=== PATIENT | male | born 1980 | race Caucasian/White ===

== ENCOUNTER 2016-10-09 05:56 | Inpatient (IN) | payer MEDICAID, OTHER ==
[~2016-10-09] VITALS: Ht 157.5 cm; Wt 78.0 kg
[2016-10-09 05:59] VITALS: Ht 157.5 cm; Wt 78.0 kg
[2016-10-09] MEDS ORDERED: SOD CHLORIDE 0.9% 1,000 ML IV STA (06:20)
--- NOTE | 2016-10-09 06:29 | ERD ---
ER Documentation Chief Complaint Date/Time DATE: 10/09/16 TIME: 06:26 Chief Complaint rectal pain with bleeding(bright red with clots); on and off for 3 years HPI 36-year-old male who presents the emergency room with rectal bleeding. The patient has 3 year history of intermittent rectal bleeding, worse over the past year. He states over the last year he has daily rectal bleeding usually with wiping but occasionally with bowel movements. Today however he describes a heavier than normal bleed with passage of some clots. He does have some rectal pain. He denies any fevers or chills. The patient states a colonoscopy and endoscopy within the past year that has been unrevealing, no follow-up since then. He denies any other gum bleeding or bruising, he has had a transfusion for anemia in the past. ROS All systems reviewed and are negative except as per history of present illness. Medications Home Meds No Active Prescriptions or Reported Meds Allergies Allergies: Coded Allergies: No Known Allergy (Unverified , 10/09/16) PMhx/Soc Medical and Surgical Hx: pt denies Medical Hx, pt denies Surgical Hx Hx Alcohol Use: No Hx Substance Use: No Hx Tobacco Use: No Smoking Status: Never smoker FmHx Family History: No diabetes Physical Exam Vitals Vital Signs Date Time Temp Pulse Resp B/P Pulse Ox O2 Delivery O2 Flow Rate FiO2 10/09/16 07:22 94 16 134/70 100 Room Air 10/09/16 05:59 98.1 120 20 151/89 99 Physical Exam General: Well developed, well nourished, no acute distress Head: Normocephalic, atraumatic. Eyes: Pupils equally reactive, EOM intact ENT: Moist mucous membranes Neck: Supple, no lymphadenopathy Respiratory: Lungs clear bilaterally, no distress Cardiovascular: Slight tachycardia, no murmurs, rubs, or gallops Abdominal: Soft, non-tender, non-distended, no peritoneal signs : Rectal examination with a price changer shows evidence of a large 3 cm external hemorrhoid that does not appear to be thrombosed with dried blood and no active bleeding, internal examination with brown stool, no melena, no internal hemorrhoids palpated, no masses. MSK: No edema, no unilateral swelling, 5/5 strength Neurologic: Alert and oriented, moving all extremities, normal speech, no focal weakness, no cerebellar signs Skin: No rash, no petechia or purpura Psych: Normal mood Result Diagram: 10/09/16 0620 Results 24 hrs Laboratory Tests Test 10/09/16 06:20 White Blood Count 7.210^3/ul Red Blood Count 3.9610^6/ul Hemoglobin 6.3g/dl Hematocrit 24.3% Mean Corpuscular Volume 61.4fl Mean Corpuscular Hemoglobin 15.9pg Mean Corpuscular Hemoglobin Concent 25.9g/dl Red Cell Distribution Width 20.4% Platelet Count 53972^3/UL Mean Platelet Volume 9.6fl Prothrombin Time 14.0Sec Prothrombin Time Ratio 1.1 INR International Normalized Ratio 1.08 Activated Partial Thromboplast Time 26.4Sec Current Medications Medications (Trade) Dose Ordered Sig/Abbie Route PRN Reason Start Time Stop Time Status Last Admin Dose Admin Sodium Chloride 1,000 ml @ 1,000 mls/hr Q1H STAT IV 10/09/16 06:20 10/09/16 07:19 DC 10/09/16 06:32 Sodium Chloride (NS) 250 ml @ 0 mls/hr Q0M ONCE IV 10/09/16 07:43 10/09/16 07:45 DC Ondansetron HCl (Zofran Inj) 4 mg BRIDGE ORDER PRN IV NAUSEA AND/OR VOMITING 10/09/16 08:00 10/10/16 07:59 Acetaminophen (Tylenol Tab) 650 mg ER BRIDGE PRN PO MILD PAIN/FEVER 10/09/16 08:00 10/10/16 07:59 Procedures/MDM LAB INTERPRETATION: Anemia MEDICAL DECISION MAKING: The patient presents with rectal bleeding and has a clinical exam that is very consistent with an external hemorrhoid. No evidence of thrombosed hemorrhoid. The patient does have some discomfort to this area but no evidence of abscess. The external hemorrhoid does have stigmata of recent hemorrhage. The patient has brown stool. He has a recent colonoscopy not suggestive of lower GI hemorrhage. Recent endoscopy not suggestive of upper GI hemorrhage. The patient has had anemia and required transfusion in the past given daily bleeding a believe a CBC and coagulation profile will be reasonable. The patient will benefit from outpatient GI follow-up, general surgery follow- up for potential banding. The patient was informed that it is not normal to have daily bleeding and further investigation is warranted. ER COURSE: The patient has anemia less than 7. For this reason I believe he would benefit from a blood transfusion. Based on the patient's clinical presentation, physical exam and laboratory testing, I believe that a blood transfusion would be most appropriate. I believe the benefits outweigh the risks. I had a prolonged conversation regarding informed consent of a blood transfusion with the patient and/or family. We discussed the risks, benefits, alternatives of blood transfusion. There was verbalized understanding. A documented consent was signed and placed in the patient's chart. The patient was written for 2 units packed red blood cells and will be admitted for further transfusion. I kept the patient and/or family informed of laboratory and diagnostic imaging results throughout the emergency room course. DISPOSITION PLAN: Medical surgical admission for management of symptomatic anemia secondary to prolonged and subacute lower GI bleed Accepting care team and consultations: I discussed the current laboratory data, diagnostic imaging and emergency care provided. Admitting team: Dr. Rodríguez Admitting team indication: Insurance directed Departure Diagnosis: Primary Impression: Bleeding external hemorrhoids Additional Impression: Symptomatic anemia Condition: Stable MAGEN CARRERO MD Oct 09, 2016 06:29
[2016-10-09 07:06] LABS: ADD SCAN DIFF NO
[2016-10-09 07:11] LABS: ABNORMAL IP MESSAGE 1; HEMATOCRIT 24.3 % (42.0-52.0); MEAN CORPUSCULAR HEMOGLOBIN 15.9 pg (29.0-33.0); MEAN CORPUSCULAR HGB CONC 25.9 g/dl (32.0-37.0); MEAN CORPUSCULAR VOLUME 61.4 fl (82.0-101.0); MEAN PLATELET VOLUME 9.6 fl (7.4-10.4); PLATELET COUNT 629 10^3/UL (140-415); RED BLOOD COUNT 3.96 10^6/ul (4.70-6.10); RED CELL DISTRIBUTION WIDTH 20.4 % (11.5-14.5)
[2016-10-09 07:29] LABS: HEMOGLOBIN 6.3 g/dl (14.0-18.0)
[2016-10-09 07:39] LABS: INR 1.08; PARTIAL THROMBOPLASTIN TIME 26.4 Sec (25.0-35.0); PT RATIO 1.1
[2016-10-09] MEDS ORDERED: SOD CHLORIDE 0.9% 250 ML IV ONE (07:43)
[2016-10-09] MEDS ORDERED: ACETAMINOPHEN 325 MG TAB PO PRN (08:00)
[2016-10-09] MEDS ORDERED: ONDANSETRON 4 MG INJ IV PRN (08:00)
[2016-10-09 09:28] LABS: EOSINOPHILS # 0.1 10^3/ul (0.0-0.5); LYMPHOCYTES # 1.6 10^3/ul (0.8-2.9); MONOCYTE # 0.5 10^3/ul (0.3-0.9)
[2016-10-09 09:29] LABS: PLATELET ESTIMATE PLT APPEAR INCREASED
--- NOTE | 2016-10-09 12:42 | HP ---
Date/Time of Note Date/Time of Note DATE: 10/09/16 TIME: 12:41 Assessment/Plan VTE Prophylaxis VTE Prophylaxis Intervention: ambulation Assessment/Plan Assessment/Plan 1. Severe anemia 2/2 #2 2. Chronic Ongoing rectal bleeding 3. Regular alcohol use PLAN: TRansfuse / GI consult for possible endoscopy / Iron profile / supportive care Further evaluation and treatment will be based on clinical course Full discussion with care team done. All questions Answered Please also see orders. HPI/ROS Admit Date/Time Admit Date/Time 10/09/16 Hx of Present Illness PRESENTING COMPLAINT: rectal bleeding HISTORY OF PRESENTING COMPLAINT: 36-year-old male who presents the emergency room with rectal bleeding. The patient has 3 year history of intermittent rectal bleeding, worse over the past year. He states over the last year he has daily rectal bleeding usually with wiping but occasionally with bowel movements. Today however he describes a heavier than normal bleed with passage of some clots. He does have some rectal pain. He denies any fevers or chills. The patient states a colonoscopy and endoscopy within the past year that has been unrevealing, no follow-up since then. He denies any other gum bleeding or bruising, he has had a transfusion for anemia in the past. He's being admitted for further workup. PMH/Family/Social Past Medical History * rectal bleeding Past Surgical History Past Surgical Hx: no surgical history Family History Significant Family History: no pertinent family hx Social History Alcohol Use: heavy (somwhat) Smoking Status: Never smoker Exam/Review of Systems Vital Signs Vitals VS - Last 72 Hours, by Label Date Time Temp Pulse Resp B/P Pulse Ox O2 Delivery O2 Flow Rate FiO2 10/09/16 07:22 94 16 134/70 100 Room Air 10/09/16 05:59 98.1 120 20 151/89 99 Vital Signs Date Time Temp Pulse Resp B/P Pulse Ox O2 Delivery O2 Flow Rate FiO2 10/09/16 07:22 94 16 134/70 100 Room Air 10/09/16 05:59 98.1 Exam Exam GENERAL: Patient is alert, oriented x 3, in no apparent distress; does not appear acutely or chronically ill. Patient is able to sit up unassisted.Patient makes good eye contact, is conversant, interactive, coherent. Patient appears calm and comfortable and is able to follow commands. HEENT: Oropharynx is clear. There is no carotid bruit, no masses. Patient's pupils are equal, round and reactive to light bilaterally. Extraocular motions are intact. There is no scleral icterus. There is no facial asymmetry. NECK: Supple. LUNGS: Clear to auscultation bilaterally with good air entry. No Wheezes or crackles. HEART: S1, S2. No murmur, gallops or rubs. Regular rate and rhythm. ABDOMEN: Soft, nontender. Normoactive bowel sounds. There are no stigmata of chronic liver disease. BACK: no costovertebral angle tenderness. GENITOURINARY: Deferred. EXTREMITIES: No edema. There is no cyanosis, clubbing. There are 2+ pulses bilaterally distally. NEUROLOGIC: The patient has no lateralizing signs. Cranial nerves II-XII are intact. SKIN: Otherwise, unremarkable. Labs Result Diagram: 10/09/16 06 Procedures Procedures Laboratory Tests Test 10/09/16 06:20 White Blood Count 7.210^3/ul Red Blood Count 3.9610^6/ul Hemoglobin 6.3g/dl Hematocrit 24.3% Mean Corpuscular Volume 61.4fl Mean Corpuscular Hemoglobin 15.9pg Mean Corpuscular Hemoglobin Concent 25.9g/dl Red Cell Distribution Width 20.4% Platelet Count 88158^3/UL Mean Platelet Volume 9.6fl Neutrophils % 69.0% Lymphocytes % 22.0% Monocytes % 7.0% Eosinophils % 2.0% Neutrophils # 5.010^3/ul Lymphocytes # 1.610^3/ul Monocytes # 0.510^3/ul Eosinophils # 0.110^3/ul Platelet Estimate PLT APPEAR INCREASED Prothrombin Time 14.0Sec Prothrombin Time Ratio 1.1 INR International Normalized Ratio 1.08 Activated Partial Thromboplast Time 26.4Sec Current Medications Medications (Trade) Dose Ordered Sig/Abbie Route PRN Reason Start Time Stop Time Status Last Admin Dose Admin Sodium Chloride 1,000 ml @ 1,000 mls/hr Q1H STAT IV 10/09/16 06:20 10/09/16 07:19 DC 10/09/16 06:32 1,000 MLS/HR Sodium Chloride (NS) 250 ml @ 0 mls/hr Q0M ONCE IV 10/09/16 07:43 10/09/16 07:45 DC 10/09/16 07:43 0 MLS/HR Ondansetron HCl (Zofran Inj) 4 mg BRIDGE ORDER PRN IV NAUSEA AND/OR VOMITING 10/09/16 08:00 10/10/16 07:59 Acetaminophen (Tylenol Tab) 650 mg ER BRIDGE PRN PO MILD PAIN/FEVER 10/09/16 08:00 10/10/16 07:59 KRISSY BACON 29, 2017 12:41
--- NOTE | 2016-10-09 13:13 | CONS ---
Date/Time of Note Date/Time of Note DATE: 10/09/16 TIME: 13:13 Assessment/Plan Assessment/Plan Chief Complaint/Hosp Course Assessment/Plan IMPRESSEION 1. Severe anemia 2. Chronic Ongoing rectal bleeding 3. Regular alcohol use PLAN: TRansfuse PRN hgb less than 8 protonix 40 mg bid Plan for EGD and colonoscopy for hemostasis Problems: Consultation Date/Type/Reason Admit Date/Time 10/09/16 Date of Consultation: Oct 09, 2016 Type of Consultation: GI Reason for Consultation severe anemia from GI bleed Hx of Present Illness 36-year-old male who is admitted for GI bleeding and symptomatic anemia. He has 3 year history of intermittent rectal bleeding, worse over the past year. He states over the last year he has daily rectal bleeding usually with wiping but occasionally with bowel movements. Today however he describes a heavier than normal bleed with passage of some clots. He does have some rectal pain. He denies any fevers or chills. The patient states a colonoscopy and endoscopy within the past year that has been unrevealing, no follow-up since then. He denies any other gum bleeding or bruising, he has had a transfusion for anemia in the past. All point ROS administered, pertinent positives and negatives in HPI otherwise negative. Past Medical History Medical History: GI bleed Past Surgical History Past Surgical Hx: endoscopy Family History Significant Family History: no pertinent family hx Social History Alcohol Use: none Smoking Status: Never smoker Drug Use: none Exam/Review of Systems Vital Signs Vitals Vital Signs Date Time Temp Pulse Resp B/P Pulse Ox O2 Delivery O2 Flow Rate FiO2 10/09/16 07:22 94 16 134/70 100 Room Air 10/09/16 05:59 98.1 Exam Constitutional: alert, oriented, well developed Psych: nl mood/affect, no complaints Head: atraumatic, normocephalic Eyes: EOMI, nl conjunctiva, nl lids, nl sclera ENMT: mucosa pink and moist, nl external ears & nose, nl lips & teeth, nl nasal mucosa & septum Neck: non-tender, supple Respiratory: clear to auscultation, normal air movement Cardiovascular: nl pulses, regular rate and rhythm Gastrointestinal: bowel sounds, non-tender, soft Extremities: normal pulses Neurological: nl mental status, nl speech, nl strength Results Result Diagram: 10/09/16 0620 Results 24 hrs Laboratory Tests Test 10/09/16 06:20 White Blood Count 7.2 Red Blood Count 3.96 L Hemoglobin 6.3 *L Hematocrit 24.3 L Mean Corpuscular Volume 61.4 L Mean Corpuscular Hemoglobin 15.9 L Mean Corpuscular Hemoglobin Concent 25.9 L Red Cell Distribution Width 20.4 H Platelet Count 629 H Mean Platelet Volume 9.6 Neutrophils % 69.0 Lymphocytes % 22.0 Monocytes % 7.0 Eosinophils % 2.0 Neutrophils # 5.0 Lymphocytes # 1.6 Monocytes # 0.5 Eosinophils # 0.1 Platelet Estimate PLT APPEAR INCREASED Prothrombin Time 14.0 Prothrombin Time Ratio 1.1 INR International Normalized Ratio 1.08 Activated Partial Thromboplast Time 26.4 CYNDY MAXWELL MD Oct 09, 2016 13:13
[2016-10-09 13:30] VITALS: TEMP 98.1
[2016-10-09 14:43] VITALS: BP 130/80; RESP 18
[2016-10-09] MEDS ORDERED: BISACODYL (EC) 5 MG TAB PO ONE ×2 (16:00→20:00)
[2016-10-09] MEDS ORDERED: MAGNESIUM CITRATE 300 ML BTL PO ONE (18:00)
[2016-10-09] MEDS ORDERED: POLYETHYLENE GLYCOL 3350 119 GM POWDER PO ONE ×2 (20:00→21:00)
[2016-10-09 20:07] VITALS: BP 135/79; RESP 20
[2016-10-09 20:59] LABS: IRON 22 ug/dl (35-150)
[2016-10-09 21:08] LABS: TOTAL IRON BINDING CAPACITY 512 ug/dl (241-421)
[2016-10-10] VITALS (11 sets, daily range): BP systolic 106–121; BP diastolic 59–89; PULSE 70–81; RESP 12–18
[2016-10-10 06:33] LABS: ABNORMAL IP MESSAGE 1; HEMATOCRIT 28.6 % (42.0-52.0); HEMOGLOBIN 8.1 g/dl (14.0-18.0); MEAN CORPUSCULAR HEMOGLOBIN 18.5 pg (29.0-33.0); MEAN CORPUSCULAR HGB CONC 28.3 g/dl (32.0-37.0); MEAN CORPUSCULAR VOLUME 65.1 fl (82.0-101.0); MEAN PLATELET VOLUME 9.9 fl (7.4-10.4); PLATELET COUNT 521 10^3/UL (140-415); RED BLOOD COUNT 4.39 10^6/ul (4.70-6.10); RED CELL DISTRIBUTION WIDTH 23.5 % (11.5-14.5); WHITE BLOOD COUNT 6.9 10^3/ul (4.8-10.8)
[2016-10-10 07:04] LABS: ADD SCAN DIFF NO
[2016-10-10 07:07] LABS: ALBUMIN 4.7 g/dl (3.3-4.9); ALBUMIN/GLOBULIN RATIO 1.42; BILIRUBIN,INDIRECT 1.5 mg/dl (0-1.1); BILIRUBIN,TOTAL 1.5 mg/dl (0.2-1.3); CALCIUM 9.2 mg/dl (8.4-10.2); CREATININE 0.79 mg/dl (0.61-1.24); MAGNESIUM 2.3 mg/dl (1.7-2.5); POTASSIUM 3.2 mmol/L (3.5-5.1)
[2016-10-10 08:54] LABS: WHITE BLOOD COUNT 7.2 10^3/ul (4.8-10.8)
--- NOTE | 2016-10-10 09:13 | RADRPT ---
PROCEDURE: US Abdomen (right upper quadrant). CLINICAL INDICATION: Right upper quadrant abdomen pain. TECHNIQUE: Multiple real-time longitudinal and transverse images of the right upper quadrant of th e abdomen were acquired utilizing a curved array transducer. Images were reviewed on a high-resoluti on PACS workstation. COMPARISON: None FINDINGS: The liver is normal in size and normal in echogenicity. There is no focal hepatic lesion. Color Doppler and pulsed Doppler sonography demonstrate normal a ntegrade flow in the portal vein. The gallbladder is normal with no stones or wall thickening. There is no pericholecystic fluid james ection. The bile ducts are normal with the common bile duct measuring 4.4 mm in diameter. The visualized portions of the pancreas are unremarkable with obscuration of the tail of the pancrea s. No free fluid is present. The right kidney measures 11.4 cm. There is normal echogenicity of the right kidney. There is no perinephric fluid collection. No hydronephrosis, mass, or calculus is seen. IMPRESSION: 1. Unremarkable right upper quadrant abdomen ultrasound. RPTAT: QQ .Alexis Ni MD, MD Date Time Electronically viewed and signed by .Alexis Ni MD, on 10/10/2016 09:12 .R/
[2016-10-10 09:18] LABS: BARBITURATES Negative (NEGATIVE); BENZODIAZEPINES Negative (NEGATIVE); CANNABINOIDS Negative (NEGATIVE); COCAINE Negative (NEGATIVE); OPIATES Negative (NEGATIVE)
[2016-10-10] MEDS ORDERED: ACETAMINOPHEN 325 MG TAB PO PRN (10:00)
[2016-10-10] MEDS ORDERED: ONDANSETRON 4 MG INJ IV PRN (10:00)
[2016-10-10] MEDS ORDERED: LORAZEPAM 2 MG INJ IV PRN (10:00)
--- NOTE | 2016-10-10 10:00 | PN ---
Date/Time of Note Date/Time of Note DATE: 10/10/16 TIME: 09:54 Assessment/Plan VTE Prophylaxis VTE Prophylaxis Intervention: SCD's Lines/Catheters IV [facility] Saline Lock Assessment/Plan Chief Complaint/Hosp Course A/P: 36-year-old male who presents the emergency room with rectal bleeding, microcytic anemia. 1. Microcytic anemia - 2/2 #2 - likely Fe deficient, given iron profile results. S/P blood transfusion. - for EGD/colonscopy today - f/u results - IV iron transfusion - monitor for bleeding signs - f/u GI results 2. Chronic Ongoing rectal bleeding - monitor - see #1 3. Regular alcohol use - check EtOH levels, IVF's, monitor for withdrawal Problems: Subjective 24 Hr Interval Summary Free Text/Dictation No acute events overnight, awaiting EGD/colonscopy later today. Exam/Review of Systems Vital Signs Vitals Vital Signs Date Time Temp Pulse Resp B/P Pulse Ox O2 Delivery O2 Flow Rate FiO2 10/10/16 07:46 97.8 69 16 106/72 100 10/09/16 13:30 Room Air Intake and Output 10/09/16 10/09/16 10/10/16 15:00 23:00 07:00 Intake Total 700 ml 980 ml 360 ml Balance 700 ml 980 ml 360 ml Exam GENERAL: Patient is alert, oriented x 3, appears calm and comfortable and is able to follow commands. HEENT: Patient's pupils are equal, round and reactive to light bilaterally. Extraocular motions are intact. There is no scleral icterus. There is no facial asymmetry. NECK: Supple. LUNGS: Clear to auscultation bilaterally with good air entry. No Wheezes or crackles. HEART: S1, S2. No murmur, gallops or rubs. Regular rate and rhythm. ABDOMEN: Soft, nontender. Normoactive bowel sounds. There are no stigmata of chronic liver disease. EXTREMITIES: No edema. There is no cyanosis, clubbing. There are 2+ pulses bilaterally distally. NEUROLOGIC: The patient has no lateralizing signs. Cranial nerves II-XII are intact. SKIN: Otherwise, unremarkable. Results Result Diagram: 10/10/16 0500 10/10/16 0500 Results 24 hrs Laboratory Tests Test 10/10/16 00:30 10/10/16 05:00 10/10/16 05:21 Urine Opiates Screen Negative Urine Barbiturates Negative Urine Amphetamines Screen POSITIVE Urine Benzodiazepines Screen Negative Urine Cocaine Screen Negative Urine Cannabinoids Negative White Blood Count 6.9 Red Blood Count 4.39 L Hemoglobin 8.1 #L Hematocrit 28.6 L Mean Corpuscular Volume 65.1 L Mean Corpuscular Hemoglobin 18.5 L Mean Corpuscular Hemoglobin Concent 28.3 L Red Cell Distribution Width 23.5 H Platelet Count 521 H Mean Platelet Volume 9.9 Sodium Level 141 Potassium Level 3.2 L Chloride Level 98 Carbon Dioxide Level 26 Anion Gap 20 H Blood Urea Nitrogen 13 Creatinine 0.79 Glucose Level 84 Calcium Level 9.2 Magnesium Level 2.3 Total Bilirubin 1.5 H Direct Bilirubin 0.00 Indirect Bilirubin 1.5 H Aspartate Amino Transf (AST/SGOT) 34 Alanine Aminotransferase (ALT/SGPT) 23 Alkaline Phosphatase 70 Total Protein 8.0 Albumin 4.7 Globulin 3.30 H Albumin/Globulin Ratio 1.42 Lab Scanned Report BLOOD TRANSFUSION Medications Medications Current Medications Sodium Chloride (1/2 NS) 1,000 ml @ 75 mls/hr [id number] IV ; Start 10/10/16 at 10 :00; Status UNV Pantoprazole 40 mg 40 mg DAILY@06 IV ; Start 10/10/16 at 10:00; Status UNV Ferric Sodium Gluconate Complex/ Sodium Chloride (Ferrlecit/NS) 110 ml @ 100 mls/hr Q24H IVPB ; Start 10/10/16 at 10:00; Stop 10/12/16 at 11:05; Status UNV Ondansetron HCl (Zofran Inj) 4 mg Q6H PRN IV NAUSEA AND/OR VOMITING; Start at 10:00; Status UNV Acetaminophen (Tylenol Tab) 650 mg Q6H PRN PO PAIN AND OR ELEVATED TEMP; Start 10/10/16 at 10:00 Lorazepam 0.5 mg 0.5 mg Q6H PRN IV ANXIETY; Start 10/10/16 at 10:00 Potassium Chloride (KCl 40 MEQ/250 ML NS) 250 ml @ 62.5 mls/hr ONCE ONCE IVPB ; Start 10/10/16 at 10:00; Stop 10/10/16 at 13:59; Status UNV SNEHA HELM Oct 10, 2016 10:00
[2016-10-10 10:27] LABS: EOSINOPHILS # 0.9 10^3/ul (0.0-0.5); LYMPHOCYTES # 2.6 10^3/ul (0.8-2.9); MONOCYTE # 0.3 10^3/ul (0.3-0.9); NEUTROPHIL # 3.1 10^3/ul (1.6-7.5)
[2016-10-10] MEDS: SOD CHLORIDE 0.45% 1,000 ML IV SCH (10:29)
[2016-10-10] MEDS ORDERED: POTASSIUM CHLORIDE 250 ML IVPB ONE (10:30)
[2016-10-10] MEDS: PANTOPRAZOLE 40 MG INJ IV SCH (10:33)
[2016-10-10] MEDS ORDERED: LIDOCAINE 2% (SDV) 5 ML INJ ONE (12:55)
[2016-10-10] MEDS ORDERED: PROPOFOL 20 ML ONE (12:55)
[2016-10-10] MEDS ORDERED: FENTAnyl 50 MCG/ML VIAL ONE (12:56)
[2016-10-10] MEDS ORDERED: PHENYLephrine (100 MCG/ML) 5ML SYG ONE (12:59)
--- NOTE | 2016-10-10 13:00 | OPR ---
Date/Time of Note Date/Time of Note DATE: 10/10/16 TIME: 12:59 Operative Report Free Text/Dictation Recommendation: 1. f/u biopsy result and treat for H. pylori eradication if positive 2. f/u h/h and ok to dc if h/h stable and no further bleeding Procedure Date: Oct 10, 2016 Preoperative Diagnosis anemia, rectal bleeding Postoperative Diagnosis 1. 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 diverticulosis 5. internal and external hemorrhoids Surgeon: CYNDY MAXWELL MD Anesthesia: MAC Anesthesiologist: FILOMENA LEWIS Estimated Blood Loss: minimal Specimens stomach biopsies Complications: None Pt Condition Post Procedure: stable Disposition: PACU Indications anemia, rectal bleeding Operative\Procedure Findings 1. 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 diverticulosis 5. internal and external hemorrhoids Procedure Description After informed consent and timeout, patient was sedated. After adequate sedation , I inserted an adult EGD scope from the mouth and advanced to 2nd portion of duodenum. Retroflexion was performed in the body of stomach revealing cardia and fundus. I then withdraw the EGD scope to GEJ at 40 cm, Z line at 40cm, no hiatal hernia. Air then suctioned out as I completely removed the scope. Patient then turned around for colonoscopy. Rectal exam normal with normal tone with external hemorrhoids. I then inserted an colonoscope from the rectum and advanced to cecum at 80 cm. Retroflexion performed in rectum showing small internal hemorrhoids. Air then suctioned out as I withdraw the colonoscope. CYNDY MAXWELL MD Oct 10, 2016 13:00
[2016-10-10 15:27] LABS: CHOL/HDL RATIO 3.9 RATIO
[2016-10-10] MEDS: SOD FERRIC GLUC COMPLX 125 MG in SOD CHLORIDE 0.9% 100 ML IVPB SCH (18:19)
[2016-10-11] MEDS: PANTOPRAZOLE 40 MG INJ IV SCH (05:40)
[2016-10-11 07:01] LABS: ABNORMAL IP MESSAGE 1; BASOPHILS % 0.4 % (0.0-2.0); EOSINOPHILS # 1.1 10^3/ul (0.0-0.5); HEMATOCRIT 26.6 % (42.0-52.0); HEMOGLOBIN 7.3 g/dl (14.0-18.0); LYMPHOCYTES # 1.7 10^3/ul (0.8-2.9); LYMPHOCYTES % 24.2 % (15.0-51.0); MEAN CORPUSCULAR HEMOGLOBIN 18.3 pg (29.0-33.0); MEAN CORPUSCULAR HGB CONC 27.4 g/dl (32.0-37.0); MEAN CORPUSCULAR VOLUME 66.5 fl (82.0-101.0); MEAN PLATELET VOLUME 10.1 fl (7.4-10.4); MONOCYTE # 0.5 10^3/ul (0.3-0.9); MONOCYTES % 6.4 % (0.0-11.0); NEUTROPHIL # 3.7 10^3/ul (1.6-7.5); NEUTROPHILS % 53.7 % (39.0-77.0); PLATELET COUNT 508 10^3/UL (140-415); RED CELL DISTRIBUTION WIDTH 23.7 % (11.5-14.5)
[2016-10-11 07:16] LABS: ALBUMIN 4.1 g/dl (3.3-4.9); ALBUMIN/GLOBULIN RATIO 1.7; BILIRUBIN,INDIRECT 0.9 mg/dl (0-1.1); BILIRUBIN,TOTAL 0.9 mg/dl (0.2-1.3); CREATININE 0.76 mg/dl (0.61-1.24); POTASSIUM 3.4 mmol/L (3.5-5.1); TOTAL PROTEIN 6.5 g/dl (6.1-8.1)
[2016-10-11 08:00] VITALS: BP 117/65; PULSE 73; RESP 18
[2016-10-11] MEDS: SOD CHLORIDE 0.45% 1,000 ML IV SCH ×2 (09:59→12:40)
[2016-10-11] MEDS: SOD FERRIC GLUC COMPLX 125 MG in SOD CHLORIDE 0.9% 100 ML IVPB SCH (12:40)
[2016-10-11 16:20] LABS: ABNORMAL IP MESSAGE 1; BASOPHILS % 0.4 % (0.0-2.0); EOSINOPHILS # 0.9 10^3/ul (0.0-0.5); EOSINOPHILS % 12.7 % (0.0-7.0); HEMATOCRIT 26.5 % (42.0-52.0); HEMOGLOBIN 7.4 g/dl (14.0-18.0); LYMPHOCYTES # 1.7 10^3/ul (0.8-2.9); LYMPHOCYTES % 23.9 % (15.0-51.0); MEAN CORPUSCULAR HEMOGLOBIN 18.6 pg (29.0-33.0); MEAN CORPUSCULAR HGB CONC 27.9 g/dl (32.0-37.0); MEAN CORPUSCULAR VOLUME 66.6 fl (82.0-101.0); MEAN PLATELET VOLUME 9.2 fl (7.4-10.4); MONOCYTE # 0.4 10^3/ul (0.3-0.9); MONOCYTES % 5.5 % (0.0-11.0); NEUTROPHILS % 57.2 % (39.0-77.0); PLATELET COUNT 487 10^3/UL (140-415); RED BLOOD COUNT 3.98 10^6/ul (4.70-6.10); RED CELL DISTRIBUTION WIDTH 23.4 % (11.5-14.5); WHITE BLOOD COUNT 6.9 10^3/ul (4.8-10.8)
[2016-10-11 16:21] LABS: ADD SCAN DIFF NO
[2016-10-11] MEDS ORDERED: PSYL0.5244 PO (16:37)
--- NOTE | 2016-10-11 16:38 | PDOCDIS ---
Discharge Instructions CONDITION Patient Condition: Good HOME CARE INSTRUCTIONS: Diet Instructions: RegularSpecial Diet: CLEAR LIQUIDS REFERRALS Other Referrals Follow up with Dr Ian Mata the form setter [employer] within 1-2 weeks Office Address [address] [place] [address] Office RAMEZ LUA MD Oct 11, 2016 16:38
--- NOTE | 2016-10-11 16:50 | DS ---
Date/Time of Note Date/Time of Note DATE: 10/11/16 TIME: 16:48 Discharge Summary Admission/Discharge Info Admit Date/Time Oct 09, 2016 at 07:56 Discharge Date/Time Discharge Diagnosis anemia, colonic AVM, diverticulosis, internal and external hemorrhoids Patient Condition: Good Consults GI Procedures 6.30 EGD/CScope notable for colon AVM-->cauterized. Diverticulosis, internal and external hemorrhoids Hx of Present Illness PRESENTING COMPLAINT: rectal bleeding HISTORY OF PRESENTING COMPLAINT: 36-year-old male who presents the emergency room with rectal bleeding. The patient has 3 year history of intermittent rectal bleeding, worse over the past year. He states over the last year he has daily rectal bleeding usually with wiping but occasionally with bowel movements. Today however he describes a heavier than normal bleed with passage of some clots. He does have some rectal pain. He denies any fevers or chills. The patient states a colonoscopy and endoscopy within the past year that has been unrevealing, no follow-up since then. He denies any other gum bleeding or bruising, he has had a transfusion for anemia in the past. He's being admitted for further workup. Hospital Course Pt seen by GI, had EGD and CScope with results as above. Pt with stable hgb post procedure and thus discharged with rx for psyllium and GI f/u within 2 weeks Home Meds Active Scripts Psyllium Husk (Daily Fiber) 0.52 Gm Capsule, 0.52 GM PO DAILY for 30 Days, #30 CAP Prov:RAMEZ LUA MD 10/11/16 Primary Care Provider Care Physician No Primary Time spent on discharge: > 30 minutes Pending Labs Laboratory Tests Test 10/11/16 06:00 10/11/16 16:10 White Blood Count 7.010^3/ul (4.8-10.8) 6.910^3/ul (4.8-10.8) Red Blood Count 4.0010^6/ul (4.70-6.10) 3.9810^6/ul (4.70-6.10) Hemoglobin 7.3g/dl (14.0-18.0) 7.4g/dl (14.0-18.0) Hematocrit 26.6% (42.0-52.0) 26.5% (42.0-52.0) Mean Corpuscular Volume 66.5fl (82.0-101.0) 66.6fl (82.0-101.0) Mean Corpuscular Hemoglobin 18.3pg (29.0-33.0) 18.6pg (29.0-33.0) Mean Corpuscular Hemoglobin Concent 27.4g/dl (32.0-37.0) 27.9g/dl (32.0-37.0) Red Cell Distribution Width 23.7% (11.5-14.5) 23.4% (11.5-14.5) Platelet Count 72278^3/UL (140-415) 60923^3/UL (140-415) Mean Platelet Volume 10.1fl (7.4-10.4) 9.2fl (7.4-10.4) Neutrophils % 53.7% (39.0-77.0) 57.2% (39.0-77.0) Lymphocytes % 24.2% (15.0-51.0) 23.9% (15.0-51.0) Monocytes % 6.4% (0.0-11.0) 5.5% (0.0-11.0) Eosinophils % 15.0% (0.0-7.0) 12.7% (0.0-7.0) Basophils % 0.4% (0.0-2.0) 0.4% (0.0-2.0) Nucleated Red Blood Cells % 0.0/100WBC (0.0-0.0) 0.0/100WBC (0.0-0.0) Neutrophils # 3.710^3/ul (1.6-7.5) 4.010^3/ul (1.6-7.5) Lymphocytes # 1.710^3/ul (0.8-2.9) 1.710^3/ul (0.8-2.9) Monocytes # 0.510^3/ul (0.3-0.9) 0.410^3/ul (0.3-0.9) Eosinophils # 1.110^3/ul (0.0-0.5) 0.910^3/ul (0.0-0.5) Basophils # 0.010^3/ul (0.0-0.1) 0.010^3/ul (0.0-0.1) Nucleated Red Blood Cells # 0.010^3/ul (0.0-0.0) 0.010^3/ul (0.0-0.0) Sodium Level 141mmol/L (135-144) Potassium Level 3.4mmol/L (3.5-5.1) Chloride Level 102mmol/L (97-110) Carbon Dioxide Level 23mmol/L (21-31) Anion Gap 19 (8-16) Blood Urea Nitrogen 11mg/dl (7-20) Creatinine 0.76mg/dl (0.61-1.24) Glucose Level 74mg/dl (70-220) Calcium Level 9.0mg/dl (8.4-10.2) Total Bilirubin 0.9mg/dl (0.2-1.3) Direct Bilirubin 0.00mg/dl (0.00-0.20) Indirect Bilirubin 0.9mg/dl (0-1.1) Aspartate Amino Transf (AST/SGOT) 20IU/L (15-46) Alanine Aminotransferase (ALT/SGPT) 29IU/L (13-69) Alkaline Phosphatase 64IU/L (42-121) Total Protein 6.5g/dl (6.1-8.1) Albumin 4.1g/dl (3.3-4.9) Globulin 2.40g/dl (1.3-3.2) Albumin/Globulin Ratio 1.70 RAMEZ LUA MD Oct 11, 2016 16:50
--- NOTE | 2016-10-11 21:45 | CONS ---
Date/Time of Note Date/Time of Note DATE: 10/11/16 TIME: 21:43 Assessment/Plan Assessment/Plan Chief Complaint/Hosp Course IMPRESSEION 1. Severe anemia due to AVM in colon s/p cauterization with Gold probe on colonoscopy 10/10/16 2. Chronic Ongoing rectal bleeding hopefully with hemostasis is stopped 3. Regular alcohol use PLAN: TRansfuse PRN hgb less than 8 protonix 40 mg bid EtOH cessation counseled ok to dc if ok with primary and other consultants. Problems: Consultation Date/Type/Reason Admit Date/Time Oct 09, 2016 at 07:56 Initial Consult Date 10/09/16 Type of Consultation: GI 24 HR Interval Summary Free Text/Dictation no further melena, brbpr, n/v Constitutional: improved Exam/Review of Systems Vital Signs Vitals Vital Signs Date Time Temp Pulse Resp B/P Pulse Ox O2 Delivery O2 Flow Rate FiO2 10/11/16 08:00 98.2 73 18 117/65 98 Room Air Intake and Output 10/10/16 10/10/16 10/11/16 15:00 23:00 07:00 Intake Total 2130 ml 1050 ml Balance 2130 ml 1050 ml Exam Constitutional: alert, well developed Psych: nl mood/affect, no complaints Head: atraumatic, normocephalic Eyes: EOMI, nl conjunctiva, nl lids, nl sclera ENMT: mucosa pink and moist, nl external ears & nose, nl lips & teeth, nl nasal mucosa & septum Neck: non-tender, supple Respiratory: clear to auscultation, normal air movement Cardiovascular: nl pulses, regular rate and rhythm Gastrointestinal: bowel sounds, non-tender, soft Results Result Diagram: 10/11/16 1610 10/11/16 0600 Results 24 hrs Laboratory Tests Test 10/11/16 06:00 10/11/16 16:10 White Blood Count 7.0 6.9 Red Blood Count 4.00 L 3.98 L Hemoglobin 7.3 L 7.4 L Hematocrit 26.6 L 26.5 L Mean Corpuscular Volume 66.5 L 66.6 L Mean Corpuscular Hemoglobin 18.3 L 18.6 L Mean Corpuscular Hemoglobin Concent 27.4 L 27.9 L Red Cell Distribution Width 23.7 H 23.4 H Platelet Count 508 H 487 H Mean Platelet Volume 10.1 9.2 Neutrophils % 53.7 57.2 Lymphocytes % 24.2 23.9 Monocytes % 6.4 5.5 Eosinophils % 15.0 H 12.7 H Basophils % 0.4 0.4 Nucleated Red Blood Cells % 0.0 0.0 Neutrophils # 3.7 4.0 Lymphocytes # 1.7 1.7 Monocytes # 0.5 0.4 Eosinophils # 1.1 H 0.9 H Basophils # 0.0 0.0 Nucleated Red Blood Cells # 0.0 0.0 Sodium Level 141 Potassium Level 3.4 L Chloride Level 102 Carbon Dioxide Level 23 Anion Gap 19 H Blood Urea Nitrogen 11 Creatinine 0.76 Glucose Level 74 Calcium Level 9.0 Total Bilirubin 0.9 Direct Bilirubin 0.00 Indirect Bilirubin 0.9 Aspartate Amino Transf (AST/SGOT) 20 Alanine Aminotransferase (ALT/SGPT) 29 Alkaline Phosphatase 64 Total Protein 6.5 # Albumin 4.1 Globulin 2.40 Albumin/Globulin Ratio 1.70 CYNDY MAXWELL MD Oct 11, 2016 21:45
== END 2016-10-11 18:10 | disposition home or self-care (01) | DRG 379 ==
LOC: E/R 05:56 → MS2 07:56
PROVIDERS: ADMIT Family Medicine; ATTEND Family Medicine
PROC: 30233N1 Transfusion of Nonautologous Red Blood Cells into Peripheral Vein, Percutaneous Approach (ICD-10-PCS; 2016-10-09)
PROC: 0W3P8ZZ Control Bleeding in Gastrointestinal Tract, Via Natural or Artificial Opening Endoscopic (ICD-10-PCS; principal; 2016-10-10 13:00)
PROC: 0DB68ZX Excision of Stomach, Via Natural or Artificial Opening Endoscopic, Diagnostic (ICD-10-PCS; 2016-10-10 13:00)
DX: K55.21 Angiodysplasia of colon with hemorrhage (principal); D64.9 Anemia, unspecified; K64.4 Residual hemorrhoidal skin tags; Z72.89 Other problems related to lifestyle; K64.8 Other hemorrhoids
CPT/HCPCS: 36415; 36430; 76705; 80053; 80061; 80306; 80307; 83036; 83540; 83735; 85025; 85610; 85730; 86850; 86900; 86901; 86920; 88305; 88312; C9113; J2370; J2916; J3010; J3480; J7030; J7040; P9016

== ENCOUNTER 2017-09-05 10:23 | Inpatient (IN) | END 2017-09-08 14:00 | disposition home or self-care (01) | DRG 379 ==

== ENCOUNTER 2018-08-11 19:18 | Inpatient (IN) | payer OTHER ==
[~2018-08-11] VITALS: Ht 165.1 cm; Wt 80.6 kg
[~2018-08-11 19:18] MED LIST: FER325 PO
[2018-08-11] MEDS ORDERED: SOD CHLORIDE 0.9% 0 ML IV ONE (21:00)
[2018-08-11] MEDS ORDERED: ACETAMINOPHEN 325 MG TAB PO PRN ×2 (22:00→23:00)
[2018-08-11] MEDS ORDERED: ONDANSETRON 4 MG INJ IV PRN ×2 (22:00→23:00)
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
[2018-08-11] MEDS ORDERED: NACL 0.9% 3 ML SYG IV SCH (23:00)
[2018-08-11] MEDS ORDERED: morphine 2 MG INJ IV PRN (23:00)
[2018-08-11 23:07] VITALS: BP 137/73; PULSE 79; RESP 18
[2018-08-11 23:10] VITALS: Ht 165.1 cm; Wt 80.6 kg
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
[2018-08-11 23:50] VITALS: BP 128/68; PULSE 78; RESP 18
[2018-08-11] MEDS: PANTOPRAZOLE 40 MG INJ IV SCH (23:55)
[2018-08-12 00:17] VITALS: BP 134/79; PULSE 90; RESP 18
[2018-08-12 00:50] VITALS: BP 123/74; PULSE 72; RESP 17
[2018-08-12 02:00] VITALS: BP 118/72; PULSE 84; RESP 18
[2018-08-12 08:00] VITALS: BP 115/76; PULSE 74; RESP 17
[2018-08-12] MEDS: PANTOPRAZOLE 40 MG INJ IV SCH ×2 (09:21→21:31)
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
[2018-08-12] MEDS ORDERED: BISACODYL (EC) 5 MG TAB PO ONE (12:00)
[2018-08-12 14:20] VITALS: BP 122/74; PULSE 82; RESP 18
--- NOTE | 2018-08-12 14:47 | PN ---
Date/Time of Note Date/Time of Note DATE: 08/12/18 TIME: 14:47 Assessment/Plan VTE Prophylaxis Risk score (from Ns)>0 risk: 2 SCD applied (from [facility] [place]): No SCD contraindicated: other Pharmacological prophylaxis: NA/contraindicated Pharm contraindication: bleeding, anticoag not tolerated Lines/Catheters IV [facility] (from [facility]): Saline Lock Assessment/Plan Hospital Course SUBJECTIVE: Patient did have a bowel movement and saw blood in there. OBJECTIVE: Vital signs-see below PHYSICAL EXAM: Constitutional: Adequately built,not in acute distress. HEENT: Head atraumatic and normocephalic. Eyes: Extraocular muscles intact. Anicteric sclerae. Pupils equal bilaterally, reactive to light. NECK: Supple without lymph node. CHEST: Clear and good breath sounds equally. No wheezing. No rhonchi. HEART: S1, S2. Regular rate and rhythm. ABDOMEN: Soft/non tender with no rebound tenderness. Bowel sounds were present. EXTREMITIES: No cyanosis, clubbing or edema. NEUROLOGIC: Alert and oriented x3. No focal deficit. No sensory deficit. PSYCHOSOCIAL: No signs of depression. INTEGUMENTARY: No open wounds. ASSESSMENT AND PLAN: 38-year-old male with a history of GI bleed secondary to AVM, current everyday smoking, sent from PCP office for evaluation of anemia W/r ectal bleed.. 1. Severe microcytic anemia secondary to GI bleed -Status post 2 transfusion. H&H slightly improved. Will transfuse another unit today. -Avoid antiplatelets/anticoagulation. -Add iron panel to a.m. lab and give IV iron in light of possible suspected acute GI bleed 2. Acute rectal bleed -Patient with a history of AVM and transverse colon w/GIB -Plan is EGD/colonoscopy evaluation in a.m. -Follow-up GI recommendations -Empiric PPI 3. 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 DVT prophylaxis: SCDs PUD prophylaxis: Protonix Disposition: Continue current management. Follow-up GI recommendations. Patient was seen in collaboration with Dr. Rodríguez. Result Diagram: 08/12/18 1034 08/12/18 0704 Results 24hrs Laboratory Tests Test 08/11/18 20:19 08/12/18 07:04 08/12/18 10:34 White Blood Count 7.6 6.0 # 5.4 Red Blood Count 3.05 #L 3.53 L 3.54 L Hemoglobin 5.9 #*L 7.6 #L 7.6 L Hematocrit 21.3 #L 26.0 #L 26.1 L Mean Corpuscular Volume 69.8 L 73.7 L 73.7 L Mean Corpuscular Hemoglobin 19.3 L 21.5 L 21.5 L Mean Corpuscular Hemoglobin Concent 27.7 L 29.2 L 29.1 L Red Cell Distribution Width 17.7 H 19.9 H 19.7 H Platelet Count 462 H 380 392 Mean Platelet Volume 9.5 9.5 10.0 Immature Granulocytes % 0.300 0.200 0.200 Neutrophils % 38.5 L 44.8 Segmented Neutrophils % (Manual) 69 33 L Lymphocytes % 36.1 26.6 Lymphocytes % (Manual) 16 37 Monocytes % 8.2 9.2 Monocytes % (Manual) 2 3 Eosinophils % 16.3 H 18.3 H Eosinophils % (Manual) 12 H 18 H Basophils % 0.7 0.9 Basophils % (Manual) 1 1 Nucleated Red Blood Cells % 0.0 0.0 1 H Immature Granulocytes # 0.020 0.010 0.010 Neutrophils # 2.3 2.4 Lymphocytes (Manual) 1.2 1.9 Lymphocytes # 2.2 1.4 Monocytes # 0.5 0.5 Monocytes # (Manual) 0.1 L 0.1 L Eosinophils # 1.0 H 1.0 H Basophils # 0.0 0.1 Basophils # (Manual) 0.0 0.0 Nucleated Red Blood Cells # 0.0 0.0 Pathologist Review (Hematology) YES Hypochromasia 3+ Poikilocytosis 2+ 1+ Anisocytosis 2+ 1+ Microcytosis 2+ 1+ Ovalocytes 1+ Prothrombin Time 13.2 Prothrombin Time Ratio 1.0 INR International Normalized Ratio 0.99 Activated Partial Thromboplast Time 25.2 Sodium Level 141 143 Potassium Level 4.2 4.2 Chloride Level 105 110 Carbon Dioxide Level 27 27 Anion Gap 9 6 Blood Urea Nitrogen 15 12 Creatinine 0.90 0.70 Est Glomerular Filtrat Rate mL/min > 60 > 60 Glucose Level 94 91 Calcium Level 9.1 9.0 Total Bilirubin 0.4 0.7 Direct Bilirubin 0.00 0.00 Indirect Bilirubin 0.4 0.7 Aspartate Amino Transf (AST/SGOT) 38 25 Alanine Aminotransferase (ALT/SGPT) 25 24 Alkaline Phosphatase 90 61 Total Protein 7.0 6.3 Albumin 4.3 3.6 Globulin 2.70 2.70 Albumin/Globulin Ratio 1.59 1.33 Hemoglobin A1c 5.8 Triglycerides Level 53 Cholesterol Level 119 LDL Cholesterol, Calculated 68 HDL Cholesterol 40 Cholesterol/HDL Ratio 2.9 Thyroid Stimulating Hormone (TSH) 1.690 Band Neutrophils % (Manual) 1 Reactive Lymphocytes % (Manual) 7 H Neutrophils # (Manual) 1.8 Band Neutrophils # 0.0 Reactive Lymphocytes # 0.3 H Platelet Estimate NORMAL Polychromasia 3+ Exam/Review of Systems Exam Vitals Vital Signs Date Temp Pulse Resp B/P (MAP) Pulse Ox O2 O2 Flow FiO2 Time Delivery Rate 08/12/18 97.9 74 17 115/76 99 Room Air 08:00 (89) Intake and Output 08/11/18 08/11/18 08/12/18 1515:00 23:00 07:00 IntakeIntake Total 700 ml BalanceBalance 700 ml Results Results 24hrs Laboratory Tests Test 08/11/18 20:19 08/12/18 07:04 08/12/18 10:34 White Blood Count 7.6 6.0 # 5.4 Red Blood Count 3.05 #L 3.53 L 3.54 L Hemoglobin 5.9 #*L 7.6 #L 7.6 L Hematocrit 21.3 #L 26.0 #L 26.1 L Mean Corpuscular Volume 69.8 L 73.7 L 73.7 L Mean Corpuscular Hemoglobin 19.3 L 21.5 L 21.5 L Mean Corpuscular Hemoglobin Concent 27.7 L 29.2 L 29.1 L Red Cell Distribution Width 17.7 H 19.9 H 19.7 H Platelet Count 462 H 380 392 Mean Platelet Volume 9.5 9.5 10.0 Immature Granulocytes % 0.300 0.200 0.200 Neutrophils % 38.5 L 44.8 Segmented Neutrophils % (Manual) 69 33 L Lymphocytes % 36.1 26.6 Lymphocytes % (Manual) 16 37 Monocytes % 8.2 9.2 Monocytes % (Manual) 2 3 Eosinophils % 16.3 H 18.3 H Eosinophils % (Manual) 12 H 18 H Basophils % 0.7 0.9 Basophils % (Manual) 1 1 Nucleated Red Blood Cells % 0.0 0.0 1 H Immature Granulocytes # 0.020 0.010 0.010 Neutrophils # 2.3 2.4 Lymphocytes (Manual) 1.2 1.9 Lymphocytes # 2.2 1.4 Monocytes # 0.5 0.5 Monocytes # (Manual) 0.1 L 0.1 L Eosinophils # 1.0 H 1.0 H Basophils # 0.0 0.1 Basophils # (Manual) 0.0 0.0 Nucleated Red Blood Cells # 0.0 0.0 Pathologist Review (Hematology) YES Hypochromasia 3+ Poikilocytosis 2+ 1+ Anisocytosis 2+ 1+ Microcytosis 2+ 1+ Ovalocytes 1+ Prothrombin Time 13.2 Prothrombin Time Ratio 1.0 INR International Normalized Ratio 0.99 Activated Partial Thromboplast Time 25.2 Sodium Level 141 143 Potassium Level 4.2 4.2 Chloride Level 105 110 Carbon Dioxide Level 27 27 Anion Gap 9 6 Blood Urea Nitrogen 15 12 Creatinine 0.90 0.70 Est Glomerular Filtrat Rate mL/min > 60 > 60 Glucose Level 94 91 Calcium Level 9.1 9.0 Total Bilirubin 0.4 0.7 Direct Bilirubin 0.00 0.00 Indirect Bilirubin 0.4 0.7 Aspartate Amino Transf (AST/SGOT) 38 25 Alanine Aminotransferase (ALT/SGPT) 25 24 Alkaline Phosphatase 90 61 Total Protein 7.0 6.3 Albumin 4.3 3.6 Globulin 2.70 2.70 Albumin/Globulin Ratio 1.59 1.33 Hemoglobin A1c 5.8 Triglycerides Level 53 Cholesterol Level 119 LDL Cholesterol, Calculated 68 HDL Cholesterol 40 Cholesterol/HDL Ratio 2.9 Thyroid Stimulating Hormone (TSH) 1.690 Band Neutrophils % (Manual) 1 Reactive Lymphocytes % (Manual) 7 H Neutrophils # (Manual) 1.8 Band Neutrophils # 0.0 Reactive Lymphocytes # 0.3 H Platelet Estimate NORMAL Polychromasia 3+ Medications Medication Current Medications IV Flush (NS 3 ml) 3 ml PER PROTOCOL IV ; Start 08/11/18 at 23:00 Ondansetron HCl (Zofran Inj) 4 mg Q6H PRN IV NAUSEA/VOMITING; Start 08/11/18 at 23:00 Acetaminophen (Tylenol Tab) 650 mg Q6H PRN PO .PAIN 1-3 OR TEMP; Start 08/11/18 at 23:00 Morphine Sulfate (morphine) 2 mg Q4H PRN IV .SEVERE PAIN 7-10; Start 08/11/18 at 23:00 Pantoprazole (Protonix Iv) 40 mg BID IV Last administered on 08/12/18at 09:21; Admin Dose 40 MG; Start 08/11/18 at 23:00 Magnesium Citrate (Citroma) 300 ml ONCE ONCE PO ; Start 08/12/18 at 17:30; Stop 08/12/18 at 17:31 Polyethylene Glycol (Miralax) 119 gm ONCE ONCE PO ; Start 08/12/18 at 18:30; Stop 08/12/18 at 18:31 Polyethylene Glycol (Miralax) 119 gm 2ND DOSE (GI PREP) ONCE PO ; Start 08/13/18 at 06:00; Stop 08/13/18 at 06:01 Bisacodyl (Dulcolax) 10 mg 2ND DOSE (GI PREP) ONCE PO ; Start 08/13/18 at 08:00; Stop 08/13/18 at 08:01 Ferric Sodium Gluconate Complex 125 mg/Sodium Chloride 100 ml @ 100 mls/hr DAILY@1300 IVPB ; Start 08/12/18 at 16:00; Stop 08/14/18 at 13:59 ELAINA GALARZA NP August 12, 2018 14:47
[2018-08-12] MEDS ORDERED: SOD CHLORIDE 0.9% 250 ML IV* ONE (14:49)
[2018-08-12] MEDS: SOD FERRIC GLUC COMPLX 125 MG in SOD CHLORIDE 0.9% 100 ML IVPB SCH (17:15)
[2018-08-12] MEDS ORDERED: MAGNESIUM CITRATE 300 ML BTL PO ONE (17:30)
[2018-08-12] MEDS ORDERED: POLYETHYLENE GLYCOL 17 GM PACKET ONE (17:55)
[2018-08-12] MEDS ORDERED: POLYETHYLENE GLYCOL 3350 119 GM POWDER PO ONE (18:30)
[2018-08-12 20:00] VITALS: BP 131/77; PULSE 78; RESP 18
[2018-08-13] VITALS (7 sets, daily range): BP systolic 94–137; BP diastolic 54–86; PULSE 74–82; RESP 18–22
[2018-08-13] MEDS ORDERED: POLYETHYLENE GLYCOL 3350 119 GM POWDER PO ONE (06:00)
[2018-08-13] MEDS ORDERED: BISACODYL (EC) 5 MG TAB PO ONE (06:00)
[2018-08-13] MEDS: PANTOPRAZOLE 40 MG INJ IV SCH ×2 (08:59→20:59)
[2018-08-13] MEDS ORDERED: SOD CHLORIDE 0.9% 250 ML IV* ONE (09:10)
--- NOTE | 2018-08-13 10:33 | PN ---
Date/Time of Note Date/Time of Note DATE: 08/13/18 TIME: 10:31 Assessment/Plan VTE Prophylaxis Risk score (from Ns)>0 risk: 1 SCD applied (from Ns): Yes Pharmacological prophylaxis: NA/contraindicated Pharm contraindication: bleeding Lines/Catheters IV Catheter Type (from [facility]): Saline Lock Assessment/Plan Hospital Course SUBJECTIVE: No acute overnight episodes. Patient is scheduled for EGD/colonoscopy today. OBJECTIVE: Vital signs-see below PHYSICAL EXAM: Constitutional: Adequately built,not in acute distress. HEENT: Head atraumatic and normocephalic. Eyes: Extraocular muscles intact. Anicteric sclerae. Pupils equal bilaterally, reactive to light. NECK: Supple without lymph node. CHEST: Clear and good breath sounds equally. No wheezing. No rhonchi. HEART: S1, S2. Regular rate and rhythm. ABDOMEN: Soft/non tender with no rebound tenderness. Bowel sounds were present. EXTREMITIES: No cyanosis, clubbing or edema. NEUROLOGIC: Alert and oriented x3. No focal deficit. No sensory deficit. PSYCHOSOCIAL: No signs of depression. INTEGUMENTARY: No open wounds. ASSESSMENT AND PLAN: 38-year-old male with a history of GI bleed secondary to AVM, current everyday smoking, sent from PCP office for evaluation of anemia W/rectal bleed.. 1. Severe microcytic anemia secondary to GI bleed -Hemoglobin improved. Recommend transfusing 1 more PRBC today. -Avoid antiplatelets/anticoagulation. -Continue IV iron with stop date placed 2. Acute rectal bleed -Patient with a history of AVM and transverse colon w/GIB -Plan is EGD/colonoscopy evaluation today -Follow-up GI recommendations -Empiric PPI 3. 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 DVT prophylaxis: SCDs PUD prophylaxis: Protonix Disposition: Continue current management. Follow-up GI recommendations. Monitor H&H closely. Likely DC in a.m. if endoscopy/colonoscopy findings stable for outpatient follow-up. Patient was seen in collaboration with Dr. Rodríguez. Result Diagram: 08/13/1852508/13/18525 Results 24hrs Laboratory Tests Test 08/12/18 10:34 08/12/18 16:53 08/12/18 22:46 08/13/18 05:26 White Blood Count 5.4 5.8 6.4 Red Blood Count 3.54 L 3.96 L 3.70 L Hemoglobin 7.6 L 8.6 L 7.9 L 8.0 L Hematocrit 26.1 L 29.2 L 27.3 L 27.4 L Mean Corpuscular Volume 73.7 L 73.7 L 73.8 L Mean Corpuscular 21.5 L 21.7 L 21.4 L Hemoglobin Mean Corpuscular 29.1 L 29.5 L 28.9 L Hemoglobin Concent Red Cell Distribution 19.7 H 19.3 H 19.5 H Width Platelet Count 392 426 H 428 H Mean Platelet Volume 10.0 9.1 9.7 Immature Granulocytes % 0.200 0.500 H 0.500 H Neutrophils % 44.8 47.1 58.6 Segmented Neutrophils 33 L % (Manual) Band Neutrophils % 1 (Manual) Lymphocytes % 26.6 26.9 21.1 Lymphocytes % (Manual) 37 Reactive Lymphocytes 7 H % (Manual) Monocytes % 9.2 7.3 6.1 Monocytes % (Manual) 3 Eosinophils % 18.3 H 17.2 H 12.8 H Eosinophils % (Manual) 18 H Basophils % 0.9 1.0 0.9 Basophils % (Manual) 1 Nucleated Red Blood 1 H 0.0 0.0 Cells % Immature Granulocytes # 0.010 0.030 0.030 Neutrophils # 2.4 2.7 3.8 Neutrophils # (Manual) 1.8 Band Neutrophils # 0.0 Lymphocytes (Manual) 1.9 Lymphocytes # 1.4 1.6 1.4 Reactive Lymphocytes # 0.3 H Monocytes # 0.5 0.4 0.4 Monocytes # (Manual) 0.1 L Eosinophils # 1.0 H 1.0 H 0.8 H Basophils # 0.1 0.1 0.1 Basophils # (Manual) 0.0 Nucleated Red Blood 0.0 0.0 0.0 Cells # Platelet Estimate NORMAL Polychromasia 3+ Poikilocytosis 1+ Anisocytosis 1+ Microcytosis 1+ Sodium Level 142 Potassium Level 3.8 Chloride Level 106 Carbon Dioxide Level 28 Anion Gap 8 Blood Urea Nitrogen 9 Creatinine 0.73 Est Glomerular Filtrat > 60 Rate mL/min Glucose Level 84 Calcium Level 9.1 Total Bilirubin 0.7 Direct Bilirubin 0.00 Indirect Bilirubin 0.7 Aspartate Amino 24 Transf (AST/SGOT) Alanine 27 Aminotransferase (ALT/SG PT) Alkaline Phosphatase 65 Total Protein 6.5 Albumin 3.9 Globulin 2.60 Albumin/Globulin Ratio 1.50 Exam/Review of Systems Exam Vitals Vital Signs Date Temp Pulse Resp B/P (MAP) Pulse Ox O2 O2 Flow FiO2 Time Delivery Rate 08/13/18 98.0 76 18 116/72 98 Room Air 08:00 (87) Intake and Output 08/12/18 08/12/18 08/13/18 1515:00 23:00 07:00 IntakeIntake Total 200 ml 1700 ml BalanceBalance 200 ml 1700 ml Results Results 24hrs Laboratory Tests Test 08/12/18 10:34 08/12/18 16:53 08/12/18 22:46 08/13/18 05:26 White Blood Count 5.4 5.8 6.4 Red Blood Count 3.54 L 3.96 L 3.70 L Hemoglobin 7.6 L 8.6 L 7.9 L 8.0 L Hematocrit 26.1 L 29.2 L 27.3 L 27.4 L Mean Corpuscular Volume 73.7 L 73.7 L 73.8 L Mean Corpuscular 21.5 L 21.7 L 21.4 L Hemoglobin Mean Corpuscular 29.1 L 29.5 L 28.9 L Hemoglobin Concent Red Cell Distribution 19.7 H 19.3 H 19.5 H Width Platelet Count 392 426 H 428 H Mean Platelet Volume 10.0 9.1 9.7 Immature Granulocytes % 0.200 0.500 H 0.500 H Neutrophils % 44.8 47.1 58.6 Segmented Neutrophils 33 L % (Manual) Band Neutrophils % 1 (Manual) Lymphocytes % 26.6 26.9 21.1 Lymphocytes % (Manual) 37 Reactive Lymphocytes 7 H % (Manual) Monocytes % 9.2 7.3 6.1 Monocytes % (Manual) 3 Eosinophils % 18.3 H 17.2 H 12.8 H Eosinophils % (Manual) 18 H Basophils % 0.9 1.0 0.9 Basophils % (Manual) 1 Nucleated Red Blood 1 H 0.0 0.0 Cells % Immature Granulocytes # 0.010 0.030 0.030 Neutrophils # 2.4 2.7 3.8 Neutrophils # (Manual) 1.8 Band Neutrophils # 0.0 Lymphocytes (Manual) 1.9 Lymphocytes # 1.4 1.6 1.4 Reactive Lymphocytes # 0.3 H Monocytes # 0.5 0.4 0.4 Monocytes # (Manual) 0.1 L Eosinophils # 1.0 H 1.0 H 0.8 H Basophils # 0.1 0.1 0.1 Basophils # (Manual) 0.0 Nucleated Red Blood 0.0 0.0 0.0 Cells # Platelet Estimate NORMAL Polychromasia 3+ Poikilocytosis 1+ Anisocytosis 1+ Microcytosis 1+ Sodium Level 142 Potassium Level 3.8 Chloride Level 106 Carbon Dioxide Level 28 Anion Gap 8 Blood Urea Nitrogen 9 Creatinine 0.73 Est Glomerular Filtrat > 60 Rate mL/min Glucose Level 84 Calcium Level 9.1 Total Bilirubin 0.7 Direct Bilirubin 0.00 Indirect Bilirubin 0.7 Aspartate Amino 24 Transf (AST/SGOT) Alanine 27 Aminotransferase (ALT/SG PT) Alkaline Phosphatase 65 Total Protein 6.5 Albumin 3.9 Globulin 2.60 Albumin/Globulin Ratio 1.50 Medications Medication Current Medications IV Flush (NS 3 ml) 3 ml PER PROTOCOL IV ; Start 08/11/18 at 23:00 Ondansetron HCl (Zofran Inj) 4 mg Q6H PRN IV NAUSEA/VOMITING; Start 08/11/18 at 23:00 Acetaminophen (Tylenol Tab) 650 mg Q6H PRN PO .PAIN 1-3 OR TEMP; Start 08/11/18 at 23:00 Morphine Sulfate (morphine) 2 mg Q4H PRN IV .SEVERE PAIN 7-10; Start 08/11/18 at 23:00 Pantoprazole (Protonix Iv) 40 mg BID IV Last administered on 08/13/18at 08:59; Admin Dose 40 MG; Start 08/11/18 at 23:00 Ferric Sodium Gluconate Complex 125 mg/Sodium Chloride 100 ml @ 100 mls/hr DAILY@1300 IVPB Last administered on 08/12/18at 17:15; Admin Dose 100 MLS/HR; Start 08/12/18 at 16:00; Stop 08/14/18 at 13:59 ELAINA GALARZA NP August 13, 2018 10:33
[2018-08-13] MEDS ORDERED: PROPOFOL 60 ML ONE (14:40)
[2018-08-13] MEDS ORDERED: LIDOCAINE 2% (SDV) 5 ML INJ ONE (14:40)
--- NOTE | 2018-08-13 14:40 | PREAC ---
Date/Time of Note Date/Time of Note DATE: 08/13/18 TIME: 14:38 Anesthesia Eval and Record Evaluation Time Pre-Procedure Interview DATE: 08/13/18 TIME: 14:38 Age 38 Sex male NPO: 8 hrs Preoperative diagnosis Anemia, GI bleeding Planned procedure Colonoscopy Past Medical History Past Medical History: Includes Heme: Anemia Surgery & Anesthesia Issues No known issue Meds Anticoagulation: No Beta Joseph within 24 hr: No Reason Beta Joseph not given: Pt. not on B-Joseph Active Scripts Ferrous Sulfate* (Ferrous Sulfate*) 325 Mg Tabec, 325 MG PO BID for 60 Days, TAB Prov:DONALD RENEE MD 09/08/17 Current Medications IV Flush (NS 3 ml) 3 ml PER PROTOCOL IV ; Start 08/11/18 at 23:00 Ondansetron HCl (Zofran Inj) 4 mg Q6H PRN IV NAUSEA/VOMITING; Start 08/11/18 at 23:00 Acetaminophen (Tylenol Tab) 650 mg Q6H PRN PO .PAIN 1-3 OR TEMP; Start 08/11/18 at 23:00 Morphine Sulfate (morphine) 2 mg Q4H PRN IV .SEVERE PAIN 7-10; Start 08/11/18 at 23:00 Pantoprazole (Protonix Iv) 40 mg BID IV Last administered on 08/13/18at 08:59; Admin Dose 40 MG; Start 08/11/18 at 23:00 Ferric Sodium Gluconate Complex 125 mg/Sodium Chloride 100 ml @ 100 mls/hr DAILY@1300 IVPB Last administered on 08/12/18at 17:15; Admin Dose 100 MLS/HR; Start 08/12/18 at 16:00; Stop 08/14/18 at 13:59 Meds reviewed: Yes Allergies Coded Allergies: No Known Allergy (Unverified , 08/12/18) Allergies Reviewed: Yes Labs/Studies Labs Reviewed: Reviewed by anesthesiologist Result Diagram: 08/13/1852508/13/18525 Laboratory Tests 08/12/18 22:46 08/13/18 05:26 test: N/A Studies: ECG Pre-procedure Exam Last vitals Vital Signs Date Temp Pulse Resp B/P (MAP) Pulse Ox O2 O2 Flow FiO2 Time Delivery Rate 08/13/18 98.6 80 22 137/81 99 Room Air 14:13 (99) Airway: Adequate mouth opening, Adequate thyromental dist Mallampati: Mallampati II Teeth: Normal Lung: Normal Heart: Normal ASA Physical Status ASA physical status: 3 Emergency: E Planned Anesthetic General/MAC: MAC Planned Pain Management Parenteral pain med Pre-operative Attestations Prior to commencing anesthesia and surgery, the patient was re-evaluated, there was verification of: *The patient's identity *The results of appropriate recent lab work and preoperative vital signs *The above evaluation not changing prior to induction *Anesthetic plan, risk benefits, alternative and complications discussed with patient/family; questions answered; patient/family understands, accepts and wishes to proceed. PEDRO CASTANEDA MD August 13, 2018 14:40
--- NOTE | 2018-08-13 14:41 | HPN ---
Date/Time of Note Date/Time of Note DATE: 08/13/18 TIME: 14:40 Interval H&P Admission Note Pt. seen H&P reviewed: No system changes FAMILIA HOWARD August 13, 2018 14:41
--- NOTE | 2018-08-13 15:05 | PAC ---
Date/Time of Note Date/Time of Note DATE: 08/13/18 TIME: 15:04 Post-Anesthesia Notes Post-Anesthesia Note Last documented vital signs Vital Signs Date Temp Pulse Resp B/P (MAP) Pulse Ox O2 O2 Flow FiO2 Time Delivery Rate 08/13/18 98.6 80 22 137/81 99 Room Air 14:13 (99) Activity: WNL Respiratory function: WNL Cardiovascular function: WNL Mental status: Baseline Pain reasonably controlled: Yes Hydration appropriate: Yes Nausea/Vomiting absent: Yes Comments BP:105/56, P:78, Spo2:100%, T:98,8 PEDRO CASTANEDA MD August 13, 2018 15:05
[2018-08-13] MEDS: SOD FERRIC GLUC COMPLX 125 MG in SOD CHLORIDE 0.9% 100 ML IVPB SCH (15:45)
[2018-08-14 02:00] VITALS: BP 111/67; PULSE 81; RESP 18
[2018-08-14 08:00] VITALS: BP 107/74; PULSE 74; RESP 17
[2018-08-14] MEDS: PANTOPRAZOLE 40 MG INJ IV SCH ×2 (08:42→20:20)
--- NOTE | 2018-08-14 10:55 | PN ---
Date/Time of Note Date/Time of Note DATE: 08/14/18 TIME: 10:52 Assessment/Plan VTE Prophylaxis Risk score (from [facility] [place])>0 risk: 1 SCD applied (from [facility] [place]): No SCD contraindicated: low risk/ambulating Pharmacological prophylaxis: NA/contraindicated Pharm contraindication: low risk/ambulating, bleeding Lines/Catheters IV Catheter Type (from [facility]): Saline Lock Assessment/Plan Problems: (1) GI bleeding Status: Acute Comment: The colonoscopy notes indicate that this is likely a hemorrhoidal acute bleed. The patient has chronic iron deficiency anemia not adequately replaced with oral iron therapy. This is his third admission here and he has had 2 admissions at [place] for the same thing. Neurology recommends outpatient surgical consultation for the hemorrhoids. I will try and get the information about who his primary care physician is so we can forward them the information so they can complete the loop Qualifiers: GI bleed type/associated pathology: unspecified gastrointestinal hemorrhage type Qualified Codes: K92.2 - Gastrointestinal hemorrhage, unspecified (2) Hemorrhoids Status: Chronic Comment: As above. Qualifiers: Hemorrhoid type: third degree Qualified Codes: K64.2 - Third degree hemorrhoids (3) Diverticulosis of colon with hemorrhage Status: Chronic Comment: Noted. 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 Apparently not the source of bleeding (5) Iron deficiency anemia due to chronic blood loss Status: Chronic Comment: He is not well tolerating the oral IV iron therapy. We are going to give him IV iron here as best we can at least get the process started. This needs to be managed as an outpatient rather than for the frequent readmissions of this otherwise vibrant young man Result Diagram: 08/14/18 0508 08/14/18 0508 Results 24hrs Laboratory Tests Test 08/14/18 05:08 White Blood Count 6.2 Red Blood Count 4.07 L Hemoglobin 9.0 L Hematocrit 30.9 L Mean Corpuscular Volume 75.9 L Mean Corpuscular Hemoglobin 22.1 L Mean Corpuscular Hemoglobin Concent 29.1 L Red Cell Distribution Width 20.5 H Platelet Count 474 H Mean Platelet Volume 10.0 Immature Granulocytes % 0.300 Neutrophils % 42.5 Lymphocytes % 31.0 Monocytes % 8.2 Eosinophils % 17.0 H Basophils % 1.0 Nucleated Red Blood Cells % 0.0 Immature Granulocytes # 0.020 Neutrophils # 2.7 Lymphocytes # 1.9 Monocytes # 0.5 Eosinophils # 1.1 H Basophils # 0.1 Nucleated Red Blood Cells # 0.0 Sodium Level 143 Potassium Level 4.5 Chloride Level 107 Carbon Dioxide Level 28 Anion Gap 8 Blood Urea Nitrogen 15 Creatinine 0.80 Est Glomerular Filtrat Rate mL/min > 60 Glucose Level 76 Calcium Level 9.1 Total Bilirubin 0.6 Direct Bilirubin 0.00 Indirect Bilirubin 0.6 Aspartate Amino Transf (AST/SGOT) 28 Alanine Aminotransferase (ALT/SGPT) 24 Alkaline Phosphatase 66 Total Protein 6.9 Albumin 4.2 Globulin 2.70 Albumin/Globulin Ratio 1.55 Subjective 24 Hr Interval Summary Free Text/Dictation Patient reports he is feeling well and it wants to know when he can go home. Constitutional: no complaints Respiratory: no complaints Cardiovascular: no complaints Gastrointestinal: no complaints Genitourinary: no complaints Exam/Review of Systems Exam Vitals Vital Signs Date Temp Pulse Resp B/P (MAP) Pulse Ox O2 O2 Flow FiO2 Time Delivery Rate 08/14/18 97.8 74 17 107/74 99 Room Air 08:00 (85) 08/13/18 3.0 14:59 Intake and Output 08/13/18 08/13/18 08/14/18 1515:00 23:00 07:00 IntakeIntake Total 1400 ml 1850 ml 800 ml BalanceBalance 1400 ml 1850 ml 800 ml Exam Very pleasant gentleman in no distress Constitutional: alert, oriented Respiratory: clear to auscultation, normal air movement Cardiovascular: regular rate and rhythm, nl pulses Gastrointestinal: soft, nl liver, spleen, non-tender Results Results 24hrs Laboratory Tests Test 08/14/18 05:08 White Blood Count 6.2 Red Blood Count 4.07 L Hemoglobin 9.0 L Hematocrit 30.9 L Mean Corpuscular Volume 75.9 L Mean Corpuscular Hemoglobin 22.1 L Mean Corpuscular Hemoglobin Concent 29.1 L Red Cell Distribution Width 20.5 H Platelet Count 474 H Mean Platelet Volume 10.0 Immature Granulocytes % 0.300 Neutrophils % 42.5 Lymphocytes % 31.0 Monocytes % 8.2 Eosinophils % 17.0 H Basophils % 1.0 Nucleated Red Blood Cells % 0.0 Immature Granulocytes # 0.020 Neutrophils # 2.7 Lymphocytes # 1.9 Monocytes # 0.5 Eosinophils # 1.1 H Basophils # 0.1 Nucleated Red Blood Cells # 0.0 Sodium Level 143 Potassium Level 4.5 Chloride Level 107 Carbon Dioxide Level 28 Anion Gap 8 Blood Urea Nitrogen 15 Creatinine 0.80 Est Glomerular Filtrat Rate mL/min > 60 Glucose Level 76 Calcium Level 9.1 Total Bilirubin 0.6 Direct Bilirubin 0.00 Indirect Bilirubin 0.6 Aspartate Amino Transf (AST/SGOT) 28 Alanine Aminotransferase (ALT/SGPT) 24 Alkaline Phosphatase 66 Total Protein 6.9 Albumin 4.2 Globulin 2.70 Albumin/Globulin Ratio 1.55 Medications Medication Current Medications IV Flush (NS 3 ml) 3 ml PER PROTOCOL IV ; Start 08/11/18 at 23:00 Ondansetron HCl (Zofran Inj) 4 mg Q6H PRN IV NAUSEA/VOMITING; Start 08/11/18 at 23:00 Acetaminophen (Tylenol Tab) 650 mg Q6H PRN PO .PAIN 1-3 OR TEMP; Start 08/11/18 at 23:00 Morphine Sulfate (morphine) 2 mg Q4H PRN IV .SEVERE PAIN 7-10; Start 08/11/18 at 23:00 Pantoprazole (Protonix Iv) 40 mg BID IV Last administered on 08/14/18at 08:42; Admin Dose 40 MG; Start 08/11/18 at 23:00 Ferric Sodium Gluconate Complex 125 mg/Sodium Chloride 100 ml @ 100 mls/hr DAILY@1300 IVPB Last administered on 08/13/18at 15:45; Admin Dose 100 MLS/HR; Start 08/12/18 at 16:00; Stop 08/14/18 at 13:59 Ferric Sodium Gluconate Complex 125 mg/Sodium Chloride 100 ml @ 100 mls/hr ONCE ONCE IVPB ; Start 08/14/18 at 17:00; Stop 08/14/18 at 17:59; Status PUMA PINO MD August 14, 2018 10:55
[2018-08-14] MEDS: SOD FERRIC GLUC COMPLX 125 MG in SOD CHLORIDE 0.9% 100 ML IVPB SCH (12:19)
[2018-08-14 14:00] VITALS: BP 138/60; PULSE 84; RESP 17
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
[2018-08-14] MEDS ORDERED: SOD FERRIC GLUC COMPLX 125 MG in SOD CHLORIDE 0.9% 100 ML IVPB ONE (17:00)
[2018-08-14 20:00] VITALS: BP 120/65; PULSE 84; RESP 18
[2018-08-15 02:00] VITALS: BP 149/63; PULSE 74; RESP 19
[2018-08-15 08:00] VITALS: BP 134/79; PULSE 80; RESP 17
[2018-08-15] MEDS: PANTOPRAZOLE 40 MG INJ IV SCH (08:49)
--- NOTE | 2018-08-15 14:09 | DS ---
Date/Time of Note Date/Time of Note DATE: 08/15/18 TIME: 14:05 Discharge Summary Admission/Discharge Info Admit Date/Time August 11, 2018 at 21:39 Discharge Date/Time August 15, 2018 Discharge Diagnosis Severe iron deficiency anemia; lower GI bleed secondary to bleeding hemorrhoids; history of transverse colon arteriovenous malformation, status post prior treatment; diverticulosis coli Patient Condition: Good Consults Gastroenterology Procedures Nuclear medicine red cell bleeding study;Colonoscopy; transfusion; Hx of Present Illness Hx of Present Illness Chief complaint: Low hemoglobin, rectal bleeding This is a 38-year-old male with a history of colonic AVMs and rectal bleeding who presented from his PCPs office due to low hemoglobin. Patient has been dealing with bloody stool for approximately the last 2 weeks. He had a blood test performed at his primary care's office which did show a hemoglobin of approximately 5.6. He was advised to come to the emergency department. Patient denies any abdominal pain. Denies any chest pain or diarrhea. He does report bright red blood per rectum. He states that he has had multiple colonoscopies in the past. He denies any shortness of breath or dizziness. Hx of Present Illness This is a 38-year-old male with past medical history of GI bleed secondary to AVMs in the transverse colon/ Patient represents from PCP for anemia . Upon work-up patient noted to have a hemoglobin of 5.9, hematocrit 21.3, MCV 69.8, MCH 19.3. Patient states he has been having intermittent rectal bleeding for the past 14 days. His last colonoscopy was completed in 2017 s/p AVM cauterization. He denies n/v, abdominal pain, melena, or unintentional weight loss. He denies NSAID use, he continues to smoke daily (1 cigarette per day). Discussed plan for stat nuclear med bleeding scan to assess area of bleeding we will prep patient and plan for colonoscopy tomorrow. I reviewed risk/benefits of procedure and sedation patient verbalized understanding is agreeable to proceed with colonoscopy tomorrow. Review of Systems: A 12 system, review was conducted and is negative except as noted in the HPI or here. Hospital Course Ling 38-year-old gentleman. He came with severe iron deficiency anemia. He required transfusion but was also given IV iron therapy successfully. Colonoscopy demonstrated bleeding internal hemorrhoids and no other source of bleeding. At this time he is stable for discharge and markedly improved. Plan is for him to see an outpatient surgical versus colorectal surgical treatment for his hemorrhoids to protect his interest. In addition he was very likely need further parenteral iron. Home Meds Active Scripts Ferrous Sulfate* (Ferrous Sulfate*) 325 Mg Tabec, 325 MG PO BID for 60 Days, TAB Prov:DONALD RENEE MD 09/08/17 Follow-up Plan Follow-up with primary care physician at [facility] Primary Care Provider [facility] Time spent on discharge: > 30 minutes Pending Labs Laboratory Tests Test 08/15/18 06:16 White Blood Count 8.9 10^3/ul (4.8-10.8) Red Blood Count 4.27 10^6/ul (4.70-6.10) Hemoglobin 9.4 g/dl (14.0-18.0) Hematocrit 31.8 % (42.0-52.0) Mean Corpuscular Volume 74.5 fl (82.0-101.0) Mean Corpuscular Hemoglobin 22.0 pg (29.0-33.0) Mean Corpuscular Hemoglobin Concent 29.6 g/dl (32.0-37.0) Red Cell Distribution Width 21.7 % (11.5-14.5) Platelet Count 536 10^3/UL (140-415) Mean Platelet Volume 10.2 fl (7.4-10.4) Immature Granulocytes % 0.700 % (0.001-0.429) Neutrophils % 51.8 % (39.0-77.0) Lymphocytes % 24.4 % (15.0-51.0) Monocytes % 7.4 % (0.0-11.0) Eosinophils % 14.7 % (0.0-7.0) Basophils % 1.0 % (0.0-2.0) Nucleated Red Blood Cells % 0.3 /100WBC (0.0-0.0) Immature Granulocytes # 0.060 10^3/ul (0.0-0.031) Neutrophils # 4.6 10^3/ul (1.6-7.5) Lymphocytes # 2.2 10^3/ul (0.8-2.9) Monocytes # 0.7 10^3/ul (0.3-0.9) Eosinophils # 1.3 10^3/ul (0.0-0.5) Basophils # 0.1 10^3/ul (0.0-0.1) Nucleated Red Blood Cells # 0.0 10^3/ul (0.0-0.0) Sodium Level 142 mmol/L (135-144) Potassium Level 4.2 mmol/L (3.5-5.1) Chloride Level 105 mmol/L (97-110) Carbon Dioxide Level 27 mmol/L (21-31) Anion Gap 10 (5-13) Blood Urea Nitrogen 15 mg/dl (7-20) Creatinine 0.84 mg/dl (0.61-1.24) Est Glomerular Filtrat Rate mL/min > 60 mL/min (>60) Glucose Level 100 mg/dl (70-220) Calcium Level 9.5 mg/dl (8.4-10.2) Total Bilirubin 0.4 mg/dl (0.2-1.3) Direct Bilirubin 0.00 mg/dl (0.00-0.20) Indirect Bilirubin 0.4 mg/dl (0-1.1) Aspartate Amino Transf (AST/SGOT) 23 IU/L (15-46) Alanine Aminotransferase (ALT/SGPT) 22 IU/L (13-69) Alkaline Phosphatase 78 IU/L (42-121) Total Protein 7.6 g/dl (6.1-8.1) Albumin 4.4 g/dl (3.3-4.9) Globulin 3.20 g/dl (1.3-3.2) Albumin/Globulin Ratio 1.37 PUMA COHEN MD August 15, 2018 14:09
--- NOTE | 2018-08-15 14:10 | PDOCDIS ---
Discharge Instructions DIAGNOSIS Discharge Diagnosis Severe iron deficiency anemia; lower GI bleed secondary to bleeding hemorrhoids; history of transverse colon arteriovenous malformation, status post prior troy tment; diverticulosis coli CONDITION [id number] Patient Condition: [id number] Good HOME CARE INSTRUCTIONS: [place] Diet Instructions: Gonzalo Regular ACTIVITY: [id number] Activity Restrictions: [id number] Restrictions FOLLOW UP/APPOINTMENTS Follow-up Plan Follow-up with primary care physician at [facility] PUMA COHEN MD August 15, 2018 14:10
[2018-08-15] MEDS ORDERED: FER325 PO (14:11)
[2018-08-15 14:29] VITALS: BP 123/88; PULSE 84; RESP 17
[2018-08-15] MEDS ORDERED: SOD FERRIC GLUC COMPLX 125 MG in SOD CHLORIDE 0.9% 100 ML IVPB ONE (16:00)
== END 2018-08-15 16:10 | disposition home or self-care (01) | DRG 394 ==
LOC: E/R 19:18 → PP2 21:39 → CANRESERV 21:48 → PP2 23:21
PROVIDERS: ADMIT Family Medicine; ATTEND Family Medicine
PROC: 30233N1 Transfusion of Nonautologous Red Blood Cells into Peripheral Vein, Percutaneous Approach (ICD-10-PCS; 2018-08-11)
PROC: 0DJD8ZZ Inspection of Lower Intestinal Tract, Via Natural or Artificial Opening Endoscopic (ICD-10-PCS; principal; 2018-08-13 14:30)
DX: K64.8 Other hemorrhoids (principal); D62 Acute posthemorrhagic anemia; K55.20 Angiodysplasia of colon without hemorrhage; F17.210 Nicotine dependence, cigarettes, uncomplicated; K57.30 Diverticulosis of large intestine without perforation or abscess without bleeding
CPT/HCPCS: 36415; 36430; 71045; 78278; 80053; 80061; 82270; 82378; 82728; 83036; 83540; 84443; 85014; 85018; 85025; 85610; 85730; 86850; 86900; 86901; 86920; A9560; C9113; J2916; J7040; P9016